=== PATIENT | male | born 2000 | race Caucasian/White ===

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

== ENCOUNTER 2019-12-03 11:00 | Outpatient (RCR) | payer BC | END 2019-12-03 11:30 | disposition still patient (30) | LOC: PT 11:00 | DX: Z98.890 Other specified postprocedural states (principal) ==

== ENCOUNTER 2020-05-30 07:15 | Outpatient (RCR) | payer BC | END 2020-05-30 08:00 | disposition still patient (30) | LOC: PT 07:15 | DX: Z98.890 Other specified postprocedural states (principal) ==

== ENCOUNTER 2021-02-11 00:31 | Emergency (ER) | payer BC ==
[2021-02-11 01:12] LABS: BASO # 0.1 (0.02-0.10); EOS % 0.3 % (0.0-4.0); HEMATOCRIT 46.7 % (42.0-52.0); HEMOGLOBIN 15.6 g/dL (13.5-18.0); LYMPH# 4.4 (1.50-4.00); MEAN CELL VOLUME 94 fl (78-100); MEAN CORPUSCULAR HEMOGLOBIN 31 pg (27-31); MEAN CORPUSCULAR HGB CONC 33 g/dL (33-37); MEAN PLATELET VOLUME 10.2 fl (7.4-10.4); MONO # 1.3 (0.20-0.80); NEU # 7.4 (1.40-6.50); PLATELET COUNT 256 K/mm3 (130-400); RED BLOOD COUNT 4.97 M/mm3 (4.20-5.60); RED CELL DISTRIBUTION WIDTH 13.4 % (11.5-14.5); WHITE BLOOD COUNT 13.2 K/mm3 (4.8-10.8)
[2021-02-11 01:26] LABS: PROTHROMBIN TIME 10.8 SECONDS (9.0-12.0)
[2021-02-11 01:39] LABS: ALBUMIN 4.7 g/dL (3.5-5.0)
[2021-02-11 01:40] LABS: POTASSIUM 3.5 mmol/L (3.5-5.1)
[2021-02-11 01:41] LABS: CALCIUM 9.4 mg/dL (8.3-10.5)
[2021-02-11 01:42] LABS: TOTAL PROTEIN 7.6 g/dL (6.4-8.3)
[2021-02-11] MEDS ORDERED: CEPHALEXIN500 M1 PO (09:40)
[2021-02-11 10:11] VITALS: BP 140/55
== END 2021-02-11 09:56 | disposition home or self-care (01) ==
LOC: ED 00:31
PROVIDERS: Family Medicine
DX: S92.355A Nondisplaced fracture of fifth metatarsal bone, left foot, initial encounter for closed fracture (principal); S71.112A Laceration without foreign body, left thigh, initial encounter; S41.111A Laceration without foreign body of right upper arm, initial encounter; X99.9XXA Assault by unspecified sharp object, initial encounter; Y92.488 Other paved roadways as the place of occurrence of the external cause
CPT/HCPCS: J0690; J7120; L4386; Q9967

== ENCOUNTER → 2021-07-28 | Outpatient (CLI) | payer BC | LOC: RAD 13:21 | DX: S89.92XA Unspecified injury of left lower leg, initial encounter (principal); S93.402A Sprain of unspecified ligament of left ankle, initial encounter ==